=== PATIENT | male | born 1990 | race Caucasian/White ===

== ENCOUNTER 2018-05-31 19:34 | Emergency (ER) | payer OTHER ==
--- OUTSIDE RECORDS SUMMARY | 2018-05-31 19:44 | XMS REPORT ---
:1990 External Reference #:[id number] Author Organization Unruly Haskins M.D. Address [address] [place] [address] Phone [phone] Care Team Providers Name Role Phone Angely Reynolds Care Team Information Audio Operator Unavailable Payers Type Date Identification Numbers Payment Provider Subscriber Commercial Effective: Policy Number: [id number] [place] Carlos Alberto Laureano 2010 Health PayID: [id number] [address] [place] [id number] [employer] Policy Number: [id number] Medicaid [facility] [employer] Carlos Alberto Laureano Group Name: 1 1 [address] PayID: [id number] [place] [address] Problems Date Description Provider Status Onset: 10/07/2011 Adult health examination Millicent Chaudhry PA Active Onset: 10/07/2011 Cellulitis and abscess of leg Millicent Chaudhry PA Active Onset: 10/07/2011 Epistaxis Unruly Haskins M.D. Active Family History Date Family Member(s) Problem(s) Comments Father Alcoholism of Mother Diabetes Mellitus Type 2 Social History Type Date Description Comments Lives With Cousins age 24; apartment roomates Pets Snake Work Status Full-Time Employment Hand Dominance Right-Handed ETOH Use Occasionally consumes alcohol Smoking 06/06/2017 Patient has never smoked Recreational Drug Use Never Used Drugs Daily Caffeine Consumes on average 8oz of soda per day Daily Caffeine most of juice or water Allergies, Adverse Reactions, Alerts Date Description Reaction Status Severity Comments 10/07/2011 NKDA active Medications Medication Date Status Form Strength Qnty SIG Indications Ordering Provider Lisinopril-Hyd Active Tablets 10-12.5mg 30tabs 1 by I10 Unruly rodrigues 018 mouth Jozef hercules M.D. day Cephalexin Active Tablets 500mg 40tabs 1 by L03.115 Unruly 018 mouth Haskins four , MYaDYa times a day Epsom Salt Active Granules 1Box use L03.115 Unruly 018 daily in Haskinsashley thibodeaux M.D. water Levoxyl Active Tablets 50mcg 30tabs 1 by E03.9 Unruly 017 mouth Haskins every , M.DYa day No Active Hx Unknown Medications 015 - 017 Synthroid Hx Tablets 25mcg 30tabs 1 po qd Unruly Gonzalez - Haskins , Ramy 015 Immunizations CPT Code Status Date Vaccine Lot # [id number] Given 07/24/2012 Flu Triv Old Code [id number] Given 10/07/2011 Flu Triv Old Code [id number] Given 09/28/2010 Meningoccal vaccine menveo [id number] Given 09/28/2010 Tetanus,dipht, acper Tdap [id number] Given 09/28/2010 Flu > 3 Yrs Vaccine Vital Signs Date Vital Result Comment 04/27/2018 BP Systolic 142 mmHg BP Diastolic 86 mmHg Heart Rate 80 /min 04/21/2018 Weight 298.00 lb BP Systolic 140 mmHg BP Diastolic 102 mmHg 02/10/2018 Weight 309.00 lb BP Systolic 138 mmHg BP Diastolic 82 mmHg 10/07/2017 Weight 306.00 lb BP Systolic 118 mmHg BP Diastolic 80 mmHg Height 74 inches 6'2" BMI (Body Mass Index) 39.3 kg/m2 06/06/2017 Weight 313.00 lb BP Systolic 122 mmHg BP Diastolic 88 mmHg Height 74 inches 6'2" Heart Rate 76 /min Body Temperature 98.3 F Respiratory Rate 16 /min BMI (Body Mass Index) 40.2 kg/m2 05/17/2016 Weight 295.50 lb BP Systolic 100 mmHg BP Diastolic 72 mmHg Height 74 inches 6'2" Heart Rate 64 /min Body Temperature 98.1 F Respiratory Rate 16 /min BMI (Body Mass Index) 37.9 kg/m2 05/13/2015 BP Systolic 120 mmHg BP Diastolic 80 mmHg 05/07/2015 Weight 290.00 lb 04/21/2015 Weight 293.00 lb BP Systolic 120 mmHg BP Diastolic 80 mmHg Height 73.6 inches 6'1.60" Heart Rate 70 /min Body Temperature 98.9 F Respiratory Rate 14 /min BMI (Body Mass Index) 38.0 kg/m2 10/09/2012 Weight 309.00 lb BP Systolic 118 mmHg BP Diastolic 70 mmHg Height 73.4 inches 6'1.40" Heart Rate 70 /min Body Temperature 98.8 F Respiratory Rate 14 /min BMI (Body Mass Index) 40.3 kg/m2 07/24/2012 Weight 318.00 lb 10/07/2011 Weight 318.00 lb BP Systolic 118 mmHg BP Diastolic 64 mmHg Height 72 inches 6'0" Heart Rate 70 /min color Wal Body Temperature 98.6 F vision 2020 both eyes BMI (Body Mass Index) 43.1 kg/m2 Results Test Date Test Result H/L Range Note Laboratory test finding 03/03/2018 Thyroid Stim Hormone 2.29 uIU/mL 0.30- 4.20 1 CBC 03/03/2018 White Blood Count 5.4 K/uL 3.4-10.5 1 Red Blood Count 5.23 M/uL 4.20-5.80 1 Hemoglobin 15.6 gm/dL 12.8-17.0 1 Hematocrit 46.1 % 38.0-48.0 1 Mean Cell Volume 88.1 fl 80.0-96.0 1 Mean Corpuscular HGB 29.8 pg 27.0-33.0 1 Mean Corpuscular HGB Conc 33.8 g/dL 31.7-36.0 1 Platelet Count 249 K/uL 155-360 1 Red Cell Distri Width %CV 13.8 % 11.6-15.8 1 Mean Platelet Volume 9.3 fL 6.6-10.6 1 Comprehensive Metabolic Panel 03/03/2018 Glucose 93 mg/dL 74-106 1 BUN 9 mg/dL 7-18 1 Creatinine 0.8 mg/dL 0.6-1.3 1 Glom Filtration Rate, Estimate >60 mL/min >60 1 If >60 mL/min >60 1, 2 BUN/Creat 11.2 ratio 1 Sodium 137 mmol/L 136-145 1 Potassium 3.9 mmol/L 3.5-5.1 1 Chloride 104 mmol/L 98-107 1 Carbon Dioxide 27 mmol/L 21-32 1 Anion Gap 6 mEq/L Low 8-16 1 Calcium 8.7 mg/dL 8.5-10.1 1 Total Protein 8.0 g/dL 6.4-8.2 1 Albumin 3.9 g/dL 3.4-5.0 1 Globulin 4.1 g/dL 1.9-4.3 1 Alb/Glob 1.0 ratio 1 Bilirubin,Total 0.6 mg/dL 0.2-1.0 1 Sgot/Ast 36 U/L 15-37 1 SGPT/Alt 74 U/L 12-78 1 Alkaline Phosphatase 109 U/L 45-117 1 Glycohemoglobin A1c 03/03/2018 Glycohemoglobin (A1c) 5.5 % 4.2-6.3 1, 3 eAG 111 mg/dL 1 TSH Reflex FT4 And/Or 08/29/2017 Thyroid Stim Hormone 4.27 uIU/mL High 0.30-4.20 4 FT3 Reflex add FT3? Y 4 Reflex add FT4? Y 4 LDL Cholesterol Profile 08/29/2017 Cholesterol 196 mg/dL <200 4, 5 Triglycerides 117 mg/dL <150 4, 6 HDL Cholesterol 43 mg/dL >40 4, 7 LDL-Cholesterol 130 mg/dL < 100 4, 8 Reflex add FT3? Y 4 Reflex add FT4? Y 4 Basic Metabolic Panel 08/29/2017 Glucose 97 mg/dL 74-106 4 BUN 13 mg/dL 7-18 4 Creatinine 0.9 mg/dL 0.6-1.3 4 Glom Filtration Rate, Estimate >60 mL/min >60 4 If >60 mL/min >60 4, 9 BUN/Creat 14.4 ratio 4 Sodium 136 mmol/L 136-145 4 Potassium 4.3 mmol/L 3.5-5.1 4 Chloride 103 mmol/L 98-107 4 Carbon Dioxide 27 mmol/L 21-32 4 Anion Gap 6 mEq/L Low 8-16 4 Calcium 9.3 mg/dL 8.5-10.1 4 Reflex add FT3? Y 4 Reflex add FT4? Y 4 Glycohemoglobin A1c 08/29/2017 Glycohemoglobin (A1c) 5.6 % 4.2-6.3 4, 10 eAG 114 mg/dL 4 CBC 08/29/2017 White Blood Count 7.3 K/uL 3.4-10.5 4 Red Blood Count 5.45 M/uL 4.20-5.80 4 Hemoglobin 16.5 gm/dL 12.8-17.0 4 Hematocrit 48.6 % High 38.0-48.0 4 Mean Cell Volume 89.2 fl 80.0-96.0 4 Mean Corpuscular HGB 30.3 pg 27.0-33.0 4 Mean Corpuscular HGB Conc 34.0 g/dL 31.7-36.0 4 Platelet Count 243 K/uL 150-400 4 Red Cell Distri Width %CV 14.1 % 11.6-15.8 4 Mean Platelet Volume 10.0 fL 6.6-10.6 4 Free T3 08/29/2017 Free T3 3.05 pg/mL 2.18-3.98 4 Reflex add FT3? Y 4 Reflex add FT4? Y 4 Free T4 08/29/2017 Free T4 0.91 ng/dL 0.76-1.46 4 Reflex add FT3? Y 4 Reflex add FT4? Y 4 Laboratory test finding 09/23/2015 [place]oup Screen (Heterophile) NEGATIVE Negative Influenza A & B Antigen 09/23/2015 Influenza A Antigen Negative (Negative ) Influenza B Antigen Negative (Negative) 11 Laboratory test finding 09/23/2015 Throat Culture Complete See Note 12 Laboratory test finding 05/14/2015 Skin Biopsy See Note 13 Basic Metabolic Panel 04/25/2015 Glucose 100 mg/dL 74-106 BUN 11 mg/dL 7-18 Creatinine 0.8 mg/dL 0.6-1.3 Glom Filtration Rate, Estimate >60 mL/min >60 If >60 mL/min >60 14 BUN/Creat 13.7 ratio Sodium 138 mmol/L 136-145 Potassium 4.4 mmol/L 3.5-5.1 Chloride 104 mmol/L 98-107 Carbon Dioxide 25 mmol/L 21-32 Anion Gap 9 mEq/L 8-16 Calcium 9.1 mg/dL 8.5-10.1 CBS W/Automated Diff 04/25/2015 White Blood Count 7.2 K/uL 3.4-10.5 Red Blood Count 5.29 M/uL 4.20-5.80 Hemoglobin 15.6 gm/dL 12.8-17.0 Hematocrit 46.5 % 38.0-48.0 Mean Cell Volume 87.9 fl 80.0-96.0 Mean Corpuscular HGB 29.5 pg 27.0-33.0 Mean Corpuscular HGB Conc 33.5 g/dL 31.7-36.0 Platelet Count 251 K/uL 150-400 Red Cell Distri Width SD 43.8 fl 36-51 Red Cell Distri Width %CV 13.8 % 11.6-15.8 Mean Platelet Volume 10.1 fL 6.6-10.6 Neut% 47.2 % 33.0-73.0 Lymph % 30.9 % 17.0-56.0 [place]oup % 11.6 % High 0.0-10.0 Eo% 9.9 % High 0.0-5.0 Bas% 0.4 % 0.1-1.0 Neut# 3.38 K/uL 1.8-7.0 Lymph # 2.21 K/uL 1.8-7.0 [place]oup # 0.83 K/uL High 0.0-0.8 Eos # 0.71 K/uL High 0.0-0.5 Baso # 0.03 K/uL Low 0.1-0.2 Glycohemoglobin A1c 04/25/2015 Glycohemoglobin (A1c) 5.2 % 4.2-6.3 15 eAG 103 mg/dL Laboratory test finding 04/25/2015 TSH Reflex FT4 and/or 3.67 uIU/mL 0.36 -3.74 16 FT3 Liver Function Tests 04/25/2015 Total Protein 7.5 g/dL 6.4-8.2 Albumin 3.7 g/dL 3.4-5.0 Globulin 3.8 g/dL 1.9-4.3 Alb/Glob 1.0 ratio Bilirubin,Total 0.4 mg/dL 0.2-1.0 Bilirubin,Direct < 0.1 mg/dL 0.0-0.2 Bilirubin,Indirect 0.3 mg/dL 0.0-0.9 Sgot/Ast 28 U/L 15-37 SGPT/Alt 44 U/L 12-78 Alkaline Phosphatase 111 U/L 45-117 LDL Cholesterol Profile 04/25/2015 Cholesterol 155 mg/dL < 200 17 Triglycerides 63 mg/dL < 150 18 HDL Cholesterol 39 mg/dL > 40 19 LDL-Cholesterol 103 mg/dL < 100 20 Laboratory test finding 01/01/2012 TSH Reflex FT4 and/or 4.23 uIU/mL 0.49 -4.67 21 FT3 LDL Cholesterol Profile 01/01/2012 Cholesterol 196 mg/dL 120-200 Triglycerides 120 mg/dL 16-231 HDL Cholesterol 37 mg/dL -83 LDL-Cholesterol 135 mg/dL 62-185 Glycohemoglobin A1c 11/20/2011 Glycohemoglobin (A1c) 5.9 % 4.8-6.0 22 eAG 123 mg/dL Liver Function Tests 11/20/2011 Total Protein 8.5 g/dL High 6.3-8.0 Albumin 4.1 g/dL 3.5-5.0 Globulin 4.4 g/dL High 1.9-4.3 Alb/Glob 0.9 ratio Bilirubin,Total 0.3 mg/dL 0.2-1.2 Bilirubin,Direct < 0.1 mg/dL Low 0.1-0.4 Bilirubin,Indirect 0.2 mg/dL 0.0-0.9 Sgot/Ast 26 U/L 16-40 SGPT/Alt 60 U/L 30-65 Alkaline Phosphatase 100 U/L 50-136 Basic Metabolic Panel 11/20/2011 Glucose 95 mg/dL 76-115 BUN 15 mg/dL 5-23 Creatinine 0.9 mg/dL 0.5-1.4 Glom Filtration Rate, Estimate >60 mL/min >60 If >60 mL/min >60 23 BUN/Creat 16.6 ratio Sodium 139 mmol/L 136-145 Potassium 4.1 mmol/L 3.5-5.1 Chloride 104 mmol/L 98-107 Carbon Dioxide 24 mEq/L 18-29 Anion Gap 15 mEq/L 8-16 Calcium 9.4 mg/dL 8.5-10.1 LDL Cholesterol Profile 11/20/2011 Cholesterol 201 mg/dL High 120-200 Triglycerides 156 mg/dL 16-231 HDL Cholesterol 36 mg/dL LDL-Cholesterol 134 mg/dL 62-185 Laboratory test finding 11/20/2011 Thyroid Stim Hormone 5.99 uIU/mL High 0.49-4.67 Free T4 0.95 ng/dL 0.71-1.85 1 E03.9,R53.83 2 Note: Persistent reduction for 3 months or more in an eGFR <60 mL/min/1.73 m2 defines CKD. Patients with eGFR values >/=60 mL/min/1.73 m2 may also have CKD if evidence of persistent proteinuria is present. The original MDRD equation for estimated GFR is not valid for patients less than 18 years of age. Additional information may be found at www.kdoqi.org. 3 Elevated levels of HbA1c suggest the need for more aggressive treatment of glycemia. The [place] [employer] recommends that a primary goal of therapy should be a HbA1c of <7% and that physicians should re-evaluate the treatment regimen in patients with HbA1c values consistently >8%. 4 E03.9,Z68.41,Z00.01 5 Reference Guidelines*: Desirable: ........... < 200 mg/dL Borderline High: ..... 200-239 mg/dL High: ................ >=240 mg/dL * The National Cholesterol Education Program (NCEP) 6 Reference Guidelines*: Normal: ............. < 150 mg/dL Borderline High: .... 150-199 mg/dL High: ............... 200-499 mg/dL Very High: .......... > 500 mg/dL * Source: National Cholesterol Education Program (NCEP) 7 Reference Guidelines*: Low HDL: ..... < 40 mg/dL Normal: ..... 40-60 mg/dL Desirable: ... > 60 mg/dL *The National Cholesterol Education Program(NCEP) 8 Reference Guidelines*: Optimal:........... <100 mg/dL Near Optimal....... 100-129 mg/dL Borderline High.... 130-159 mg/dL High............... 160-189 mg/dL Very High.......... >=190 mg/dL * Source: National Cholesterol Education Program (NCEP) 9 Note: Persistent reduction for 3 months or more in an eGFR <60 mL/min/1.73 m2 defines CKD. Patients with eGFR values >/=60 mL/min/1.73 m2 may also have CKD if evidence of persistent proteinuria is present. The original MDRD equation for estimated GFR is not valid for patients less than 18 years of age. Additional information may be found at www.kdoqi.org. 10 Elevated levels of HbA1c suggest the need for more aggressive treatment of glycemia. The [place] [employer] recommends that a primary goal of therapy should be a HbA1c of <7% and that physicians should re-evaluate the treatment regimen in patients with HbA1c values consistently >8%. 11 Please Note: A POSITIVE result for influenza A and/or B antigen does not rule out a co-infection with other pathogens or identify any specific influenza A virus subtype. A NEGATIVE result for influenza A and/or B antigen does not preclude influenza virus infection and should not be the sole basis for treatment or other management decisions, since the antigen present in the specimen may be below the detection limit of the test. A NEGATIVE result is PRESUMPTIVE and it is recommended these results be confirmed by virus culture or an FDA-cleared influenza A and B molecular assay. 12 NORMAL THROAT TAMMY 13 OPERATION/PROCEDURE Excision DIAGNOSIS: "EXCISION, SKIN OF RIGHT THUMB ARCH": BENIGN FIBROMA WITH OVERLYING SQUAMOUS HYPERPLASIA. NO ATYPIA OR NEOPLASM IDENTIFIED. FAMILIA/clf 0938 GROSS The specimen is submitted in formalin in a container labeled, "SKIN NEOPLASM ". The specimen consists of a nodule of white-romero, hair-bearing skin 0.5 x 0.5 x 0.5 cm. The specimen is bisected and submitted entirely in one block. AFMILIA/clf CLINICAL HISTORY Enlarging skin neoplasm right thumb arch PRE OPERATIVE DIAGNOSIS Skin neoplasm, right thumb web space REVIEW CODE CODE: I Signed Electronically signed KRYSTEN TAYLOR MD 1026 14 Note: Persistent reduction for 3 months or more in an eGFR <60 mL/min/1.73 m2 defines CKD. Patients with eGFR values >/=60 mL/min/1.73 m2 may also have CKD if evidence of persistent proteinuria is present. The original MDRD equation for estimated GFR is not valid for patients less than 18 years of age. Additional information may be found at www.kdoqi.org. 15 Elevated levels of HbA1c suggest the need for more aggressive treatment of glycemia. The [place] [employer] recommends that a primary goal of therapy should be a HbA1c of <7% and that physicians should re-evaluate the treatment regimen in patients with HbA1c values consistently >8%. 16 QUERY: Reflex add FT3? N QUERY: Reflex add FT4? Y 17 Reference Guidelines*: Desirable: ........... < 200 mg/dL Borderline High: ..... 200-239 mg/dL High: ................ >=240 mg/dL * The National Cholesterol Education Program (NCEP) 18 Reference Guidelines*: Normal: ............. < 150 mg/dL Borderline High: .... 150-199 mg/dL High: ............... 200-499 mg/dL Very High: .......... > 500 mg/dL * Source: National Cholesterol Education Program (NCEP) 19 Reference Guidelines*: Low HDL: ..... < 40 mg/dL Normal: ..... 40-60 mg/dL Desirable: ... > 60 mg/dL *The National Cholesterol Education Program(NCEP) 20 Reference Guidelines*: Optimal:........... <100 mg/dL Near Optimal....... 100-129 mg/dL Borderline High.... 130-159 mg/dL High............... 160-189 mg/dL Very High.......... >=190 mg/dL * Source: National Cholesterol Education Program (NCEP) 21 QUERY: Add FT3 if TSH abnormal? FT3 QUERY: Add FT4 if TSH Abnormal? FT4 Y 22 A1c value between 5.7% and 6.4% is considered at increased risk for diabetes. A1c value greater than 6.5 % is considered essentially diagnostic for Type II diabetes. Current guidelines recommend a treatment goal of <7% for diabetic patients. This method will measure glycosylated hemoglobin variants, HbS, HbG, HbH, HbWayne, HbC, HbE, etc. Other hemoglobin- opathies may give incorrect results with this test. 23 Note: Persistent reduction for 3 months or more in an eGFR <60 mL/min/1.73 m2 defines CKD. Patients with eGFR values >/=60 mL/min/1.73 m2 may also have CKD if evidence of persistent proteinuria is present. The original MDRD equation for estimated GFR is not valid for patients less than 18 years of age. Additional information may be found at www.kdoqi.org. Procedures Date CPT Code Description Status 06/06/2017 62523 Color/Snellen Vision Completed 05/17/2016 59962 Color/Snellen Vision Completed 05/17/2016 57301 Audiogram, Screen Only Pure Tone Completed 05/13/2015 22270 Excn. Benign Lesion 0.6 - 1.0 CM Completed 04/21/2015 45848 Snellen Only Vison Completed 04/21/2015 33663 EKG Completed 04/21/2015 85975 Audiogram, Screen Only Pure Tone Completed 10/09/2012 40343 Snellen Only Vison Completed 10/09/2012 09819 Hearing Test Completed 10/07/2011 86329 Snellen Only Vison Completed 10/07/2011 32247 Hearing Test Completed 09/28/2010 83557 Snellen Only Vison Completed 09/28/2010 18533 Hearing Test Completed 09/24/2003 76831 Destruction, Any Method 1 Lesion Completed 09/17/2003 33456 Destruction, Any Method 1 Lesion Completed Encounters Type Date Location Provider CPT E/M Dx Office Visit 04/27/2018 10:30a Main Office Unruly Haskins M.D. 25542 L03.115 I10 Office Visit 04/21/2018 10:45a Main Office Unruly Haskins M.D. 54499 R53.83 E66.09 F10.20 I10 L03.115 Office Visit 02/10/2018 8:45a Main Office Unruly Haskins M.D. 69386 R53.83 G47.30 E03.9 E66.09 Office Visit 10/07/2017 8:45a Main Office Unruly Haskins M.D. 39499 E03.9 Z68.39 Office Visit 06/06/2017 11:30a Main Office Unruly Haskins M.D. 88734 Z00.01 E03.9 Z68.41 Office Visit 05/17/2016 11:00a Main Office Unruly Haskins M.D. 53437 Z00.01 E66.09 Office Visit 05/07/2015 3:00p [place] [address] 278.00 V18.0 Office Visit 04/21/2015 4:00p [place] [address] V70.0 244.9 278.00 272.4 V18.0 238.2 112.3 Office Visit 10/09/2012 2:30p [place] [address] V70.0 244.9 Office Visit 07/24/2012 4:00p [place] [address] 244.9 278.00 272.4 v04.81 Office Visit 01/18/2012 4:00p [place] [address] 244.9 278.00 Office Visit 11/24/2011 3:15p [place] [address] 790.6 278.00 244.9 272.4 Office Visit 10/07/2011 1:45p [place] [address] V70.0 V04.81 Office Visit 09/28/2010 9:30a [place] [address] V70.0 V04.81 V06.1 V05.9 Office Visit 09/11/2010 9:30a [place] [address] 682.6 Plan of Care Future Appointment(s):06/09/2018 9:30 am - Unruly Haskins M.D. at [id number]/27/2018 - Unruly Haskins M.D.L03.115 Cellulitis of right lower limbI10 Essential (primary) hypertension
[2018-05-31 19:56] VITALS: BP 139/84
--- NOTE | 2018-05-31 20:11 | UC ---
Lower Extremity/Ankle HPI - HPI Summary HPI Summary: Patient is a 28-year-old male that presents here for evaluation of a right toe infection. His right great toe. Other him for 4 weeks. States it has been red and swollen and draining pus at times. His primary care physician and was started on 1 week of antibiotics. What antibiotic he took. States that he did improve while on the antibiotic. He days he states his symptoms have worsened with increase pain swelling and redness of the right great toe. - History of Current Complaint Chief Complaint: UCLowerExtremity Stated Complaint: RIGHT GREAT TOE ISSUE Time Seen by Provider: 05/31/18 19:56 Hx Obtained From: Patient Onset/Duration: Gradual Onset, Lasting Weeks - 4 Severity Initially: Mild Severity Currently: Mild Pain Intensity: 1 Pain Scale Used: 0-10 Numeric Aggravating Factor(s): Standing, Ambulation Alleviating Factor(s): Rest, Elevation Able to Bear Weight: Yes Feet (Multiple View): 1 - red/swollen with subungual pus, nail loose - Allergies/Home Medications Allergies/Adverse Reactions: Allergies Allergy/AdvReac Type Severity Reaction Status Date / Time No Known Allergies Allergy Verified 05/31/18 19:48 Home Medications: Home Medications Blood Pressure Med 1 tab QAM 05/31/18 [History Confirmed 05/31/18] Levothyroxine TAB* [Synthroid 25 MCG TAB*] 1 tab DAILY 05/31/18 [History Confirmed 05/31/18] PMH/Surg Hx/FS Hx/Imm Hx Previously Healthy: Yes Cardiovascular History: Hypertension - Surgical History Surgical History: None - Family History Known Family History: Positive: Hypertension - Social History Alcohol Use: Occasionally Substance Use Type: None Smoking Status (MU): Never Smoked Tobacco - Immunization History Most Recent Tetanus Shot: 2011 Review of Systems Constitutional: Negative Skin: Negative Eyes: Negative ENT: Negative Respiratory: Negative Cardiovascular: Negative Gastrointestinal: Negative Genitourinary: Negative Motor: Negative Neurovascular: Negative Musculoskeletal: Negative Neurological: Negative Psychological: Negative Is Patient Immunocompromised?: No All Other Systems Reviewed And Are Negative: Yes Physical Exam Triage Information Reviewed: Yes Appearance: Well-Appearing, No Pain Distress Vital Signs: Initial Vital Signs Temp 98 F 05/31/18 19:49 Pulse 99 05/31/18 19:49 Resp 16 05/31/18 19:49 BP 139/84 05/31/18 19:49 Pulse Ox 98 05/31/18 19:49 Vital Signs Reviewed: Yes Eyes: Positive: Conjunctiva Clear ENT: Positive: Hearing grossly normal. Negative: Nasal congestion, Nasal drainage, Trismus, Muffled voice, Hoarse voice Neck: Positive: Supple Respiratory: Positive: Lungs clear, Normal breath sounds, No respiratory distress Cardiovascular: Positive: RRR, No Murmur Musculoskeletal: Positive: Other: - see image Neurological Exam: Normal Neurological: Positive: Alert Psychological Exam: Normal Procedures - Procedure Summary Procedure Summary: procedure: REMOVAL OF RIGHT GREAT TOE NAIL procedure explained and all questions answered TIME OUT digital block with 7 cc 2% lido with epi sterile prep nail removed dressing applied pt tolerated procedure well Lower Extremity Course/Dx - Differential Dx/Diagnosis Provider Diagnoses: infected ingrown toenail- right great toe. right great toe cellulitis Discharge - Sign-Out/Discharge Documenting (check all that apply): Patient Departure - Discharge Plan Condition: Stable Disposition: HOME Prescriptions: Cephalexin CAP* [Keflex CAP*] 500 mg PO QID #28 cap Patient Education Materials: Cellulitis (ED), Ingrown Nail (ED), Nail Avulsion (ED) Referrals: Unruly Haskins MD [Primary Care Provider] - 7 Days Additional Instructions: warm soapy 2x day until infection gone recheck for new or worsening symptoms tylenol or advil for pain - Billing Disposition and Condition Condition: STABLE Disposition: Home
[2018-05-31] MEDS ORDERED: Lidocaine 2% W/EPI 1:100,000* 20 ML MDV INJ ONE (20:14)
[2018-05-31] MEDS ORDERED: Cephalexin CAP* 500 MG PO ONE (20:40)
== END 2018-05-31 20:56 | disposition home or self-care (01) ==
LOC: UCCORT 19:34
DX: L60.0 Ingrowing nail (principal); L03.031 Cellulitis of right toe; I10 Essential (primary) hypertension
CPT/HCPCS: 11730; 99212; A9270-GY; G0463

== ENCOUNTER 2019-01-12 07:58 | Emergency (ER) | payer OTHER ==
[2019-01-12 08:16] VITALS: BP 122/93
--- NOTE | 2019-01-12 09:24 | ED ---
Lower Extremity - HPI Summary HPI Summary: 28 yr old with over a week of right hip pain. Onset over one week. Worse with bearing weight just on right hip. He has pain in the right upper gluteal area. No fever, chills. No swelling. no pain down his legs or bowel or bladder incontinence. - History of Current Complaint Chief Complaint: UCLowerExtremity Stated Complaint: HIP PAIN - RIGHT SIDE Time Seen by Provider: 01/12/19 08:18 Pain Intensity: 0 - Allergies/Home Medications Allergies/Adverse Reactions: Allergies Allergy/AdvReac Type Severity Reaction Status Date / Time No Known Allergies Allergy Verified 01/12/19 08:11 Home Medications: Home Medications Ibuprofen TAB* [Advil TAB*] 400 mg PO Q6H PRN 01/12/19 [History Confirmed ] PMH/Surg Hx/FS Hx/Imm Hx Endocrine/Hematology History: Reports: Hx Thyroid Disease Cardiovascular History: Reports: Hx Hypertension Infectious Disease History: No Infectious Disease History: Denies: Traveled Outside the [place] in Last 30 Days - Family History Known Family History: Positive: Hypertension - Social History Occupation: Employed Full-time Alcohol Use: Daily Substance Use Type: Reports: None Smoking Status (MU): Never Smoked Tobacco Review of Systems Constitutional: Negative Negative: Fever, Chills, Fatigue Positive: Other - right hip pain, right gluteal pain All Other Systems Reviewed And Are Negative: Yes Physical Exam Triage Information Reviewed: Yes Vital Signs On Initial Exam: Initial Vitals Temp Pulse Resp BP Pulse Ox 98.1 F 88 16 122/93 98 01/12/19 08:12 01/12/19 08:12 01/12/19 08:12 01/12/19 08:12 01/12/19 08:12 Vital Signs Reviewed: Yes Appearance: Positive: Well-Appearing, No Pain Distress Skin: Positive: Warm, Skin Color Reflects Adequate Perfusion Head/Face: Positive: Normal Head/Face Inspection Eyes: Positive: EOMI ENT: Positive: Normal ENT inspection Neck: Positive: Nontender Respiratory/Lung Sounds: Positive: Clear to Auscultation, Breath Sounds Present Cardiovascular: Positive: RRR. Negative: Murmur Abdomen Description: Negative: Distended Musculoskeletal: Positive: Other - right hip without effussion or redness. He has no reproducible pain on palpation. He has minimal tenderness in the right superior gluteal area. No rashes. Neurological: Positive: Sensory/Motor Intact, Alert, Oriented to Person Place, Time, CN Intact II-III Psychiatric: Positive: Normal Diagnostics - Vital Signs Vital Signs Temp Pulse Resp BP Pulse Ox 01/12/19 08:12 98.1 F 88 16 122/93 98 - Laboratory Lab Statement: Any lab studies that have been ordered have been reviewed, and results considered in the medical decision making process. - Radiology right hip, pelvis and lumbar spine Radiology Interpretation Completed By: Radiologist - CAM deformity of right femoral neck. 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 Plan is referral to Ortho for follow up. 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 This can cause impingement and restricted range of motion and pain. Please call orthopedic surgery for further evaluation and management today. - Billing Disposition and Condition Condition: GOOD Disposition: Home
== END 2019-01-12 09:49 | disposition home or self-care (01) ==
LOC: UCCORT 07:58
DX: M25.551 Pain in right hip (principal); M21.951 Unspecified acquired deformity of right thigh; I10 Essential (primary) hypertension; M79.10 Myalgia, unspecified site
CPT/HCPCS: 72110; 72170; 99211; G0463